=== PATIENT | male | born 1985 | race Caucasian/White ===

== ENCOUNTER 2020-01-10 12:16 | Emergency (ER) | payer OTHER, SELFPAY ==
[2020-01-10 12:27] VITALS: BP 142/90; PULSE 81; RESP 16; TEMP 36.3; O2SAT 100
--- NOTE | 2020-01-10 12:27 | ED.URI ---
HPI - URI/Sore Throat General Chief Complaint: Upper Respiratory Infection Stated Complaint: sore throat/fever Time Seen by Provider: 01/10/20 12:29 Source: patient and RN notes reviewed History of Present Illness HPI Narrative: Patient is a 34 year old male who presents to the urgent with complaints of fever and sore throat. Patient states symptoms started two days ago with a fever and he has been taking tylenol for fever and pain. Patient denies any fever for the last 48 hours. Patient denies any direct contact with known strep or COVID. Denies any other upper respiratory complaints. No other use of OTC medications for symptoms relief. No other acute complaints, no acute distress noted. Patient aware of the plan of care. Some parts of this dictation were generated by voice recognition software and may contain typographical and/or grammatical inaccuracies. Related Data Home Medications Medication Instructions Recorded Confirmed No Home Medications 01/10/20 01/10/20 Allergies Allergy/AdvReac Type Severity Reaction Status Date / Time Penicillins AdvReac Rash Verified 01/10/20 12:29 Sulfa (Sulfonamide AdvReac Rash Verified 01/10/20 12:29 Antibiotics) Review of Systems Review of Systems: Narrative: CONSTITUTIONAL: Reports a fever 2 days ago EYES: Denies visual changes, redness, or discharge. ENT: Reports of sore throat CARDIOVASCULAR: Denies chest pain, palpitations, or edema. RESPIRATORY: Denies cough or dyspnea. GASTROINTESTINAL: Denies abdominal pain, nausea, vomiting, or diarrhea. GENITOURINARY: Denies dysuria or hematuria. SKIN: Denies rash or itching. MUSCULOSKELETAL: Denies back pain, joint pain, or myalgia. NEUROLOGIC: Denies headache, numbness, or weakness. All other systems reviewed are negative, except as documented in HPI. PMFSH Comments At the time of my signature, I reviewed and agree with the nursing past medical, surgical, social, and family history. There is no relevant family history pertinent to the patient complaint. Exam Narrative: Exam Narrative: GENERAL: This is a well-nourished, well-developed patient, in no apparent distress. HEAD: normocephalic, atraumatic. EYES: PERRL. Sclera clear/white. Vision is grossly intact. EARS: External ears normal, auditory canals clear and without drainage, TMs normal without perforation. Hearing grossly intact. NOSE: External nose normal with no obvious nasal discharge, nares without redness, no rhinorrhea. THROAT: Mucous membranes moist, mild erythema notes to posterior oropharynx with mild post nasal drainage and mild bilateral tonsillar erythema NECK: Neck supple, non-tender without lymphadenopathy CARDIOVASCULAR: Regular rate and rhythm without murmurs, gallops, or rubs. RESPIRATORY: Clear to auscultation. Breath sounds equal bilaterally. No wheezes, rales, or rhonchi. SKIN: warm, intact with no suspicious lesions or rash, good texture and turgor. NEURO: awake, alert, and oriented to person, place and time. There were no obvious focal neurologic abnormalities. EXTREMITIES: No clubbing, cyanosis, or edema. Course Vital Signs Vital signs: Vital Signs Temperature 97.4 F L 01/10/20 12:27 Pulse Rate 81 01/10/20 12:27 Respiratory Rate 16 01/10/20 12:27 Blood Pressure 142/90 H 01/10/20 12:27 Pulse Oximetry 100 01/10/20 12:27 Temperature 97.4 F L 01/10/20 12:29 Pulse Rate 81 01/10/20 12:29 Respiratory Rate 16 01/10/20 12:29 Blood Pressure 142/90 H 01/10/20 12:29 Pulse Oximetry 100 01/10/20 12:29 reviewed -patient is informed that they may have pre-hypertension or hypertension based on a blood pressure reading in the department. I recommend the patient call the primary care provider listed on their discharge instructions or a physician of their choice this week to arrange follow-up for further evaluation of possible pre-hypertension or hypertension. MDM - URI/Sore Throat MDM Narrative Medical decision making narrative:
[2020-01-10 12:29] VITALS: BP 142/90; PULSE 81; RESP 16; TEMP 36.3; O2SAT 100
== END 2020-01-10 12:48 | disposition home or self-care (01) ==
PROVIDERS: Emergency Provider Nurse Practitioner Family
DX: J02.9 Acute pharyngitis, unspecified (principal)
CPT/HCPCS: 87081; 87880; 99213; G0463